=== PATIENT | female | born 2000 | race Caucasian/White ===

== ENCOUNTER 2021-04-13 13:50 | Inpatient (IN) ==
[~2021-04-13 13:50] MED LIST: FLUARIX QUADRIVALENT 0.5 ML SYR IM ONE; dexAMETHasone 10 MG in SYRINGE 0 ML IV SCH
[2021-04-13] MEDS ORDERED: dexAMETHasone**PF** 10 MG/ML VIAL IV ONE (16:25)
[2021-04-13] MEDS ORDERED: AMPICILLIN/SULBACTAM SOD 3,000 MG in 0.9 % SODIUM CHLORIDE 100 ML IV STA (16:25)
[2021-04-13] MEDS ORDERED: KETOROLAC TROMETHAMINE 15 MG/ML VIAL IV ONE ×2 (16:25→22:02)
[2021-04-13] MEDS ORDERED: SODIUM CHLORIDE 0.9% 1000ML 1,000 ML IV ONE (16:25)
--- NOTE | 2021-04-13 16:41 | Emergency Department Note ---
History of Present Illness General Chief complaint: Cough Stated complaint: COUGH,FEVER,SOB,HEADACHE,CONGESTION,SORETHROAT Time Seen by Provider: 04/13/21 16:09 History of Present Illness Maximum Pain Intensity: 7 20-year-old female who presents to the emergency department for evaluation of severe sore throat, inability to swallow or breathe. The patient reports that her symptoms started on Monday, along with a headache, runny nose, congestion and mild nonproductive cough. She was seen yesterday at the [facility] [place] where they performed a strep culture, and told her that she had tonsillitis. She was empirically provided a prescription for Augmentin and prednisone, however the patient has not been able to go to the pharmacy today to pickle cutter her prescription. The patient has had chills, but has not checked her temperature. She has been unable to eat or drink for the past 3 days. She rates her discomfort a 7 out of 10. Home Medications Medication Instructions Recorded Confirmed Type amitriptyline 10 mg tablet 15 mg PO HS 04/13/21 04/13/21 History ascorbic acid (vitamin C) 500 mg 0 mg PO DAILY 04/13/21 04/13/21 History tablet (Vitamin C) cholecalciferol (vitamin D3) 25 0 mcg PO DAILY 04/13/21 04/13/21 History mcg (1,000 unit) capsule (Vitamin D3) copper 380 square mm intrauterine 380 mm2 INTRAUTERINE CONTINOUS 04/13/21 04/13/21 History device (ParaGard T 380A) vitamin B complex 1 tab PO DAILY 04/13/21 04/13/21 History Allergies Allergy/AdvReac Type Severity Reaction Status Date / Time diphenhydramine AdvReac Intermediate MAKES HAND Verified 04/13/21 16:42 [From Benadryl] CLAM UP Past Med/Surg History Medical History No significant past medical history Surgical History No significant past surgical history Social History (Updated 04/13/21 @ 16:39 by Ashwin Norman) Smoking Status: Never smoker Hx Alcohol Use: Yes Alcohol type: beer Hx Substance Use: No Preferred Language: Portuguese Parts Consultant Required: No Beliefs That Will Affect Care: None marital status: Single Current Living Situation: Other Current Living Situation Comment: college roomates current occupational status: student Feels Safe at Home: Yes Safety Concerns: Feels Safe At This Time Assistive Devices: None Review of Systems 10 system review was performed and was negative except for pertinent positives and negatives as indicated in history of present illness Physical Exam Vital Signs Vital Signs - 24 hr 04/13/21 13:59 04/13/21 17:16 04/13/21 18:42 Temperature 36.8 C Temperature Source Temporal Artery Scan Pulse Rate 126 H Pulse Rate [Finger] 105 H 113 H Pulse Rhythm [Finger] Regular Respiratory Rate 16 14 20 Respiratory Effort / Characteristics Non-Labored Respiratory Depth Normal Blood Pressure 118/81 Blood Pressure [Left Arm] 115/76 131/83 Blood Pressure Mean 93 Blood Pressure Mean [Left Arm] 89 99 Pulse Oximetry 94 98 97 Oxygen Delivery Method Room Air Room Air Room Air Sepsis Recent Fever Within 48 Hours No Sepsis New/Unexplained Change in Mental Status No Sepsis Action Taken by Nursing No Action Required CONSTITUTIONAL: Healthy and well nourished. Alert and oriented X 3. Patient does not appear toxic. HEENT: Normocephalic, atraumatic. Pupils equal, round and reactive. No facial edema noted. Examination of the ears does not show any TM bulging, air-fluid levels or purulent effusion. No rhinorrhea noted. Examination of oropharynx shows significant bilateral tonsillar hypertrophy with kissing tonsils. Uvula does appear to be deviated to the left secondary to right tonsillar hypertrophy. Exudates are noted. Patient does have a mild trismus, only able to separate the incisors approximately 1 inch. Strep PCR was collected. No other buccal or mucosal lesions. NECK: Full active range of motion without discomfort. LYMPHATICS: No cervical chain adenopathy. RESPIRATORY: Clear to auscultation bilaterally with no wheezing, crackles, rhonchi or stridor. CARDIOVASCULAR: Regular rate and rhythm with no murmurs, rubs or gallops. GASTROINTESTINAL: Bowel sounds present in all quadrants. MUSCULOSKELETAL: Full range of motion of all joints without discomfort. INTEGUMENTARY: No rash or other significant dermatologic conditions noted. HEMATOLOGIC: No ecchymosis or petechiae. PSYCHIATRIC: Positive affect. NEUROLOGIC: Cranial nerves II-XII grossly intact. No focal neurologic deficits noted. Course Course Patient history and physical exam were performed. Nurses notes were reviewed. Vital signs were reviewed, showing a tachycardia of 126 bpm. The patient is otherwise afebrile and not hypoxic. IV access was established, and labs were drawn. The patient was hydrated with a liter of normal saline, and administered IV Decadron, Toradol and Unasyn. Review of labs showed a white count of 16.17 with left shift and bandemia. PT and INR were normal. The patient is mildly hyponatremic. LFTs, alkaline phosphatase, C-reactive protein and sed rate are elevated. Waller screen was positive. Group A strep was negative. COVID-19 PCR test was negative. CT of the neck with IV contrast shows evidence for severe bilateral tonsillitis with significant airway narrowing. Radiologist also makes mention of phlegmonous changes in bilateral tonsils, with a 1.8 cm developing peritonsillar abscess on the right. Upon reevaluation, the patient did report mild improvement of symptoms. The case was further discussed with Dr. Ramon, ED attending physician, as well as Dr. Sarah, ENT on-call, who recommended hospitalist consultation and she will evaluate the patient in the morning. She has recommended administering Decadron 10 mg every 8 hours, and no need for n.p.o. status after midnight. The case was then discussed with Dr. Deras, [facility] hospitalist service. Please see the hospitalist service dictations for further treatment and final disposition. The patient refused any further analgesics prior to transfer of care. Administered Medications Sodium Chloride (Nss 1000ml) 1,000 mls @ 125 mls/hr IV .Q8H ADELAIDA Stop: 04/14/21 12:14 Last Admin: 04/13/21 22:57 Dose: 125 mls/hr Documented by: [id number] Discontinued Medications Dexamethasone (Dexamethasone Sod Inj 4 Mg/Ml Vial) 10 mg IV Q8H ADELAIDA Stop: 05/13/21 19:44 Last Admin: 04/13/21 21:18 Dose: Not Given Documented by: [id number] Dexamethasone Sodium Phosphate (DexamethasonePf 10 Mg/Ml Vial) 10 mg IV NOW ONE Stop: 04/13/21 16:26 Last Admin: 04/13/21 16:55 Dose: 10 mg Documented by: [id number] Sodium Chloride (Nss 1000ml) 1,000 mls @ 999 mls/hr IV .Q1H1M ONE Stop: 04/13/21 17:25 Last Infusion: 04/13/21 17:52 Dose: 0 mls/hr Documented by: [id number] Admin: 04/13/21 16:51 Dose: 999 mls/hr Documented by: [id number] Ampicillin Sodium/Sulbactam Sodium 3,000 mg/ Sodium Chloride 108 mls @ 200 mls/hr IV NOW STA; Protocol Stop: 04/13/21 16:57 Last Infusion: 04/13/21 18:30 Dose: 0 mls/hr Documented by: [id number] Admin: 04/13/21 17:57 Dose: 200 mls/hr Documented by: [id number] Ampicillin Sodium/Sulbactam Sodium 3,000 mg/ Sodium Chloride 108 mls @ 200 mls/hr IV Q6H [facility]; Protocol Stop: 04/20/21 19:44 Last Admin: 04/13/21 21:14 Dose: Not Given Documented by: [id number] Ioversol (Optiray 320 100ml) 96 ml IV ONCE ONE Stop: 04/13/21 17:42 Last Admin: 04/13/21 17:42 Dose: 96 ml Documented by: [id number] Ketorolac Tromethamine (Ketorolac Tromethamine 15 Mg/Ml Vial) 10 mg IV NOW ONE Stop: 04/13/21 16:26 Last Admin: 04/13/21 16:55 Dose: 10 mg Documented by: [id number] Medical Decision Making Medical Records Attestation: I reviewed the patient's medical records. Home Medications Current Medication List: was personally reviewed by me Laboratory Data Attestation: I reviewed the patient's lab results. Result diagrams: 04/13/21 16:45 04/13/21 16:45 Lab Results 04/13/21 04/13/21 04/13/21 Range/Units 16:25 16:45 16:45 WBC 16.17 H (4.8-10.8) K/uL RBC 3.86 L (4.7-6.1) M/uL Hgb 11.4 L (14.0-18.0) g/dL Hct 33.1 L (42-52) % MCV 85.8 (80-100) fL MCH 29.5 (25-34) pg MCHC 34.4 (32-36) g/dL RDW Std Deviation 41.2 (36.4-46.3) fL RDW Coeff of Uzair 13.2 (11.5-14.5) % Plt Count 196 (130-400) K/uL MPV 9.6 (7.4-10.4) fL Neutrophils % (Manual) 64.9 % Lymphocytes % (Manual) 7.0 % Reactive Lymphs % (Man) 22.8 % Monocytes % (Manual) 5.3 % Neutrophils # (Manual) 10.49 H (1.4-6.5) K/uL Total Absolute Neuts 10.49 H (1.4-6.5) K/uL Lymphocytes # (Manual) 1.13 L (1.2-3.4) K/uL Reactive Lymphs # 3.69 K/uL Total Abs Lymphocytes 4.82 H (1.2-3.4) K/uL Monocytes # (Manual) 0.86 H (0.11-0.59) K/uL ESR 50 H (0-15) mm/hr Sodium (136-145) mmol/L Potassium (3.5-5.1) mmol/L Chloride (98-107) mmol/L Carbon Dioxide (21-32) mmol/L Anion Gap (3-11) BUN (7-18) mg/dl Creatinine (0.6-1.4) mg/dl Est Cr Clr Drug Dosing ml/min Est GFR ( Amer) ml/min Est GFR (Non-Af Amer) ml/min BUN/Creatinine Ratio (10-20) Glucose (70-99) mg/dl Calcium (8.5-10.1) mg/dl Total Bilirubin (0.2-1) mg/dl AST (15-37) U/L ALT (12-78) U/L Alkaline Phosphatase (45-117) U/L C-Reactive Protein (0-0.29) mg/dl Total Protein (6.4-8.2) gm/dl Albumin (3.4-5.0) gm/dl Globulin (2.5-4.0) gm/dl Albumin/Globulin Ratio (0.9-2) COVID-19 Eval Order SARS-CoV-2 (PCR) (Negative) Monoscreen (Negative) Group A Strep (PCR) NOT DETECTED (NotDetected) 04/13/21 04/13/21 04/13/21 Range/Units 16:45 16:45 19:00 WBC (4.8-10.8) K/uL RBC (4.7-6.1) M/uL Hgb (14.0-18.0) g/dL Hct (42-52) % MCV (80-100) fL MCH (25-34) pg MCHC (32-36) g/dL RDW Std Deviation (36.4-46.3) fL RDW Coeff of Uzair (11.5-14.5) % Plt Count (130-400) K/uL MPV (7.4-10.4) fL Neutrophils % (Manual) % Lymphocytes % (Manual) % Reactive Lymphs % (Man) % Monocytes % (Manual) % Neutrophils # (Manual) (1.4-6.5) K/uL Total Absolute Neuts (1.4-6.5) K/uL Lymphocytes # (Manual) (1.2-3.4) K/uL Reactive Lymphs # K/uL Total Abs Lymphocytes (1.2-3.4) K/uL Monocytes # (Manual) (0.11-0.59) K/uL ESR (0-15) mm/hr Sodium 134 L (136-145) mmol/L Potassium 3.5 (3.5-5.1) mmol/L Chloride 102 (98-107) mmol/L Carbon Dioxide 24 (21-32) mmol/L Anion Gap 8.0 (3-11) BUN 11 (7-18) mg/dl Creatinine 0.68 (0.6-1.4) mg/dl Est Cr Clr Drug Dosing 164.4 ml/min Est GFR ( Amer) > 150.0 ml/min Est GFR (Non-Af Amer) 138.5 ml/min BUN/Creatinine Ratio 16.5 (10-20) Glucose 95 (70-99) mg/dl Calcium 9.3 (8.5-10.1) mg/dl Total Bilirubin 0.8 (0.2-1) mg/dl AST 124 H (15-37) U/L ALT 280 H (12-78) U/L Alkaline Phosphatase 189 H (45-117) U/L C-Reactive Protein 10.40 H (0-0.29) mg/dl Total Protein 8.2 (6.4-8.2) gm/dl Albumin 3.8 (3.4-5.0) gm/dl Globulin 4.4 H (2.5-4.0) gm/dl Albumin/Globulin Ratio 0.9 (0.9-2) COVID-19 Eval Order Covid19 at [facility] SARS-CoV-2 (PCR) (Negative) Monoscreen Positive A (Negative) Group A Strep (PCR) (NotDetected) 04/13/21 Range/Units 19:00 WBC (4.8-10.8) K/uL RBC (4.7-6.1) M/uL Hgb (14.0-18.0) g/dL Hct (42-52) % MCV (80-100) fL MCH (25-34) pg MCHC (32-36) g/dL RDW Std Deviation (36.4-46.3) fL RDW Coeff of Uzair (11.5-14.5) % Plt Count (130-400) K/uL MPV (7.4-10.4) fL Neutrophils % (Manual) % Lymphocytes % (Manual) % Reactive Lymphs % (Man) % Monocytes % (Manual) % Neutrophils # (Manual) (1.4-6.5) K/uL Total Absolute Neuts (1.4-6.5) K/uL Lymphocytes # (Manual) (1.2-3.4) K/uL Reactive Lymphs # K/uL Total Abs Lymphocytes (1.2-3.4) K/uL Monocytes # (Manual) (0.11-0.59) K/uL ESR (0-15) mm/hr Sodium (136-145) mmol/L Potassium (3.5-5.1) mmol/L Chloride (98-107) mmol/L Carbon Dioxide (21-32) mmol/L Anion Gap (3-11) BUN (7-18) mg/dl Creatinine (0.6-1.4) mg/dl Est Cr Clr Drug Dosing ml/min Est GFR ( Amer) ml/min Est GFR (Non-Af Amer) ml/min BUN/Creatinine Ratio (10-20) Glucose (70-99) mg/dl Calcium (8.5-10.1) mg/dl Total Bilirubin (0.2-1) mg/dl AST (15-37) U/L ALT (12-78) U/L Alkaline Phosphatase (45-117) U/L C-Reactive Protein (0-0.29) mg/dl Total Protein (6.4-8.2) gm/dl Albumin (3.4-5.0) gm/dl Globulin (2.5-4.0) gm/dl Albumin/Globulin Ratio (0.9-2) COVID-19 Eval Order SARS-CoV-2 (PCR) NEGATIVE (Negative) Monoscreen (Negative) Group A Strep (PCR) (NotDetected) Imaging Data Attestation: I personally reviewed and interpreted this imaging study as follows: My Impression: CT with IV contrast of the neck shows severe bilateral tonsillitis with adjacent airway narrowing. A 1.8 cm right peritonsillar abscess is also noted. Radiologist report was also reviewed. Radiologist's Impression: Soft Tissue Neck CT 04/13/21 16:35 CT SCAN OF THE NECK WITH IV CONTRAST CLINICAL HISTORY: Sore throat. Clinical concern for tonsillar abscess. COMPARISON STUDY: No priors. TECHNIQUE: Following the IV administration of 96 cc of Optiray 320, CT scan of the soft tissues of the neck was performed from the skull base to the upper chest. Images are reviewed in the axial, sagittal, and coronal planes. IV contrast was administered without complication. A dose lowering technique was utilized adhering to the principles of ALARA. CT DOSE: 508.14 mGy.cm FINDINGS: Pharynx: The tonsils are enlarged and heterogeneous with phlegmonous change seen bilaterally. This significantly narrows the adjacent airway. A 1.8 x 1.4 cm developing peritonsillar abscess is seen on the right on image #146. There is associated mucosal hyperemia throughout the pharynx. The pharyngeal airway is widely patent. There is no evidence of mass lesion. The vocal cords are sym metric. The parapharyngeal fat is well maintained. The prevertebral/retropharyngeal soft tissues are within normal limits. The epiglottis is normal. Lymphadenopathy: There is bilateral cervical lymphadenopathy. The largest node is on the right measuring 3.0 x 2.0 cm Thyroid: Normal in size and attenuation. Salivary glands: There are prominent intraparotid lymph nodes. The parotid and submandibular glands are otherwise within normal limits. Brain parenchyma: The visualized brain parenchyma at the skull base is normal in appearance. Vascular structures: The carotid arteries and jugular veins are patent bilaterally. Skeletal structures: Imaged portions of the calvarium at the skull base are within normal limits. The cervical spine appears intact. Sinuses and mastoids: The paranasal sinuses are clear. The mastoid air cells are well pneumatized. Orbits: The bony orbits are intact. Orbital contents are normal as visualized. Lung apices: Visualized apical lung parenchyma is clear. IMPRESSION: 1. Findings are consistent with a severe pharyngitis/tonsillitis. 2. Tonsillar enlargement significantly narrows the adjacent airway. 3. Phlegmonous change is present in the tonsils bilaterally, with a 1.8 cm developing peritonsillar abscess on the right. 4. Bilateral cervical lymphadenopathy is likely reactive. Clinical follow-up to resolution is recommended. ACT 112: Negative or not required by law. Electronically signed by: Sami Sabillon M.D. 04/13/2021 6:22 PM Blood Pressure Blood Pressure Findings: Normal blood pressure MDM Narrative Patient presents the emergency department with complaint of severe sore throat, inability to swallow and breathe. She has not been able to eat or drink over the past 3 days. Physical exam shows a severe tonsillitis with right asymmetric tonsillar hypertrophy and uvular deviation. She also has a mild trismus on exam. CT exam did show evidence for severe tonsillitis with compression of the adjacent airway. A right peritonsillar abscess is also noted. The patient will be admitted for IV antibiotics and steroids, and will undergo further ENT evaluation. It is noted that the patient is also positive for mononucleosis. Group A strep PCR was negative. Impression & Plan Tonsillopharyngitis, Mononucleosis, Peritonsillar abscess Discharge Plan Visit Data Chief Complaint: Cough Stated Complaint: COUGH,FEVER,SOB,HEADACHE,CONGESTION,SORETHROAT ED Provider: Gideon Gold ED Midlevel Provider: Ashwin Norman Discharge Problem: Tonsillopharyngitis, Mononucleosis, Peritonsillar abscess Patient Disposition: Admitted As Inpatient Discharge Instructions Interventions: ED Discharge Assessment Last Done: 04/13/21 22:25 Discharge Problem: Mononucleosis Qualifiers: Infectious mononucleosis etiology: unspecified organism Infectious mononucleosis complication: other complications Qualified Code(s): B27.99 - Infectious mononucleosis, unspecified with other complication
[2021-04-13 16:59] LABS: Mean Corpuscular Hemoglobin 29.5 pg (25-34); Mean Corpuscular Hgb Conc 34.4 g/dL (32-36); Mean Corpuscular Volume 85.8 fL (80-100); Mean Platelet Volume 9.6 fL (7.4-10.4); Platelet Count 196 K/uL (130-400); RDW Coefficient of Variation 13.2 % (11.5-14.5); RDW Standard Deviation 41.2 fL (36.4-46.3); White Blood Count 16.17 K/uL (4.8-10.8)
[2021-04-13 17:23] LABS: Albumin Level 3.8 gm/dl (3.4-5.0); BUN Creatinine Ratio 16.5 (10-20); Calcium 9.3 mg/dl (8.5-10.1); Potassium 3.5 mmol/L (3.5-5.1)
[2021-04-13 17:26] LABS: Albumin Globulin Ratio 0.9 (0.9-2); Bilirubin,Total 0.8 mg/dl (0.2-1); C Reactive Protein 10.4 mg/dl (0-0.29); Globulin 4.4 gm/dl (2.5-4.0); Total Protein 8.2 gm/dl (6.4-8.2)
[2021-04-13 17:35] LABS: ALC (manual) 4.82 K/uL (1.2-3.4); ANC (manual) 10.49 K/uL (1.4-6.5); Lymphocytes # (manual) 1.13 K/uL (1.2-3.4); Monocytes # (manual) 0.86 K/uL (0.11-0.59); Monocytes % (manual) 5.3 %; Neutrophils # (manual) 10.49 K/uL (1.4-6.5); Neutrophils % (manual) 64.9 %; Reactive Lymphocytes # (manual) 3.69 K/uL; Reactive Lymphocytes % (manual) 22.8 %
[2021-04-13] MEDS ORDERED: OPTIRAY 320 100ml IV ONE (17:41)
--- NOTE | 2021-04-13 18:23 | CT Scan Report ---
CT SCAN OF THE NECK WITH IV CONTRAST CLINICAL HISTORY: Sore throat. Clinical concern for tonsillar abscess. COMPARISON STUDY: No priors. TECHNIQUE: Following the IV administration of 96 cc of Optiray 320, CT scan of the soft tissues of th e neck was performed from the skull base to the upper chest. Images are reviewed in the axial, sagitt al, and coronal planes. IV contrast was administered without complication. A dose lowering techniqu e was utilized adhering to the principles of ALARA. CT DOSE: 508.14 mGy.cm FINDINGS: Pharynx: The tonsils are enlarged and heterogeneous with phlegmonous change seen bilaterally. This si gnificantly narrows the adjacent airway. A 1.8 x 1.4 cm developing peritonsillar abscess is seen on t he right on image #146. There is associated mucosal hyperemia throughout the pharynx. The pharyngeal airway is widely patent. There is no evidence of mass lesion. The vocal cords are symmetric. The para pharyngeal fat is well maintained. The prevertebral/retropharyngeal soft tissues are within normal li mits. The epiglottis is normal. Lymphadenopathy: There is bilateral cervical lymphadenopathy. The largest node is on the right measur ing 3.0 x 2.0 cm Thyroid: Normal in size and attenuation. Salivary glands: There are prominent intraparotid lymph nodes. The parotid and submandibular glands a re otherwise within normal limits. Brain parenchyma: The visualized brain parenchyma at the skull base is normal in appearance. Vascular structures: The carotid arteries and jugular veins are patent bilaterally. Skeletal structures: Imaged portions of the calvarium at the skull base are within normal limits. The cervical spine appears intact. Sinuses and mastoids: The paranasal sinuses are clear. The mastoid air cells are well pneumatized. Orbits: The bony orbits are intact. Orbital contents are normal as visualized. Lung apices: Visualized apical lung parenchyma is clear. IMPRESSION: 1. Findings are consistent with a severe pharyngitis/tonsillitis. 2. Tonsillar enlargement significantly narrows the adjacent airway. 3. Phlegmonous change is present in the tonsils bilaterally, with a 1.8 cm developing peritonsillar a bscess on the right. 4. Bilateral cervical lymphadenopathy is likely reactive. Clinical follow-up to resolution is recomme nded. ACT 112: Negative or not required by law. Electronically signed by: Sami Sabillon M.D. 04/13/2021 6:22 PM
--- NOTE | 2021-04-13 19:20 | History & Physical Report ---
Date of Service April 13, 2021 Assessment & Plan (1) Tonsillopharyngitis: Plan: Cally is a 20-year-old female with a notable history of migraines who presented to [facility] for evaluation of sore throat and inability to swallow, subsequently found to have bilateral tonsillopharyngitis and right- sided peritonsillar abscess on imaging, likely secondary to infectious mononucleosis. Severe Pharyngotonsillitis with Peritonsillar Abscess Insetting of several days of sore throat progressively worsening pain with swallowing Monospot positive - suspect pharyngotonsillitis is largely secondary to infectious mononucleosis. Bacterial superinfection cannot be ruled out. Rapid strep negative. Throat culture pending. Notable leukocytosis with left shift, elevated ESR/CRP CT of the neck demonstrating severe pharyngeal tonsillitis with adjacent airway narrowing, phlegmonous change and 1.8 cm peritonsillar abscess on right side ENT consulted in the ED: Appreciate recommendations on need for procedural intervention/length of steroids Begin dexamethasone 10 mg IV every 8 hours Initiate Unasyn 3 g every 6 hours pending return of throat culture Monitor on telemetry. Patient certainly high risk for developing airway obstruction. Thankfully, exam demonstrating normal air movement at this time. --> If acute deterioration, notify ENT, consider ICU consult for emergency airway N.p.o. for now; reevaluate in a.m. Transaminitis -- admission AST 124 / ALT 280 At this time, largely suspect secondary to infectious mononucleosis Lower suspicion for stone related etiology in setting of the above. No elevation in bilirubin. Abdominal exam benign Synthetic function: Check INR. Albumin normal. Platelets normal. Continue to trend. If worsening, consider right upper quadrant ultrasound versus CT of the abdomen pelvis alongside additional serologies (hepatitis panel, CMV, etc.) Avoid hepatotoxic medications LR @ 125cc/hr Migraine headaches Stable, no acute needs. Continue amitriptyline Code: Full code Dispo: MedSurg with telemetry Diet: N.p.o. until a.m., reevaluate at that time; lactated Ringer's ongoing Prophylaxis: SCDs (2) Infectious mononucleosis: (3) Peritonsillar abscess: (4) Transaminitis: History of Present Illness Primary Care Provider: NO PCP Cally is a 20-year-old female with a notable history of migraines who presented to [facility] for evaluation of sore throat and inability to swallow. Patient says that the symptoms began on Monday and gotten progressively worse. Over this time, she does feel that she has been febrile with intermittent chills. She also says that she has been experiencing some m ild upper respiratory symptoms. She was seen at urgent care yesterday, where throat culture was obtained, however no results are back at this time. She was empirically prescribed Augmentin and prednisone. She has not taken these yet. Unfortunately, her symptoms worsened overnight and into today. She has been unable to swallow. She does endorse retropharyngeal fullness, but without difficulty breathing. She denies any abdominal pain. Endorses mild intermittent nausea with occasional vomiting. Patient does say that she has had direct salivary contact with 3 partners over the last several months, however denies being sexually active. She denies any current or previous use of intravenous drugs. She says that she does consume alcohol, last use was approximately 4 days ago. At the time, she said she had about 4 drinks. She says that she usually only drinks on weekend. She does endorse using about 1 g of Tylenol per day over these last several days while she has felt ill. In the ED, patient was found to be tachycardic and afebrile. She was found to have significant bilateral pharyngeal tonsillitis. She was noted to have an appreciable leukocytosis to 16 with neutrophilic predominance. Platelets normal. ESR and CRP elevated to 50 and 10.4, respectively. Sodium mildly low at 134, mild transaminitis (ALT 280, AST 124), normal albumin and bilirubin. Her Monospot returned positive. CT of neck did demonstrate severe pharyngotonsillitis with adjacent airway narrowing, phlegmonous change, 1.8 cm peritonsillar abscess on right, and reactive bilateral cervical adenopathy. ENT was consulted in the ED, where case was reviewed. Recommended dexamethasone 10 mg every 8. No acute indication for surgery at this time. Allergies Allergy/AdvReac Type Severity Reaction Status Date / Time diphenhydramine AdvReac Intermediate MAKES HAND Verified 04/13/21 16:42 [From Benadryl] CLAM UP Home Medications Medication Instructions Recorded Confirmed Type amitriptyline 10 mg tablet 15 mg PO HS 04/13/21 04/13/21 History ascorbic acid (vitamin C) 500 mg 0 mg PO DAILY 04/13/21 04/13/21 History tablet (Vitamin C) cholecalciferol (vitamin D3) 25 0 mcg PO DAILY 04/13/21 04/13/21 History mcg (1,000 unit) capsule (Vitamin D3) copper 380 square mm intrauterine 380 mm2 INTRAUTERINE CONTINOUS 04/13/21 04/13/21 History device (ParaGard T 380A) vitamin B complex 1 tab PO DAILY 04/13/21 04/13/21 History clindamycin HCl 300 mg capsule 600 mg PO Q8H 10 Days #60 cap 04/14/21 Rx methylprednisolone 4 mg tablets in See Rx Instructions .ROUTE 04/14/21 Rx a dose pack (Medrol (Pasquale)) .COMPLEX #21 ea Past Med/Surg History Medical History No significant past medical history Surgical History No significant past surgical history Social History Smoking Status: Never smoker Hx Alcohol Use: Yes Alcohol type: beer Hx Substance Use: No Preferred Language: [place] [employer]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 Denies current nausea or vomiting. Denies diarrhea. Denies urinary symptoms. Endorses throat pain. Denies facial pain. Physical Exam Physical Exam: General: Tired appearing 20-year-old female who is lying back in her hospital bed, relaxed, upon my arrival. Her voice does sound muffled. She is in no acute distress. HEENT: NCAT. Eyes - Sclera are white, anicteric, and without injection. Mouth - MMM with severe tonsillopharyngitis, touching of the back to mouth. Exudates noted on tonsils. Nose - nasal turbinates are uninflamed and without discharge. Ears - External ears appears healthy b/l with no erythema or rashes; TMs displayed white reflex b/l and are non-bulging, uninflamed, and reveal no signs of fluid accumulation. Neckappreciable soft, nontender mass noted immediately inferior to the angle of the right jaw. Fullness is appreciated within the same area on the left, but smaller. Right-sided anterior cervical lymphadenopathy appreciated. Cardiac: Tachycardic with regular rhythm; S1 and S2 present with no murmurs, rubs, or gallops. Pulmonary: Good respiratory effort with symmetric expansion of the chest. No stridor. Voice muffling noted. No use of accessory muscles. Lungs were clear to auscultation bilaterally with no crackles or wheezes. Abdominal: Abdomen was soft, nondistended, and non-tender to palpation. Mild hepatomegaly appreciated. Extremities: Upper and lower extremities are warm and well perfused. Capillary refill assessed in UE was < 3 sec. Results & Data Results & Data ([facility]) Vital Signs (Past 12 Hours) Vital Signs Temp Pulse Pulse Resp BP BP Pulse Ox 04/13/21 18:42 113 H 20 131/83 97 04/13/21 17:16 105 H 14 115/76 98 04/13/21 13:59 36.8 C 126 H 16 118/81 94 Supervising Physician Co-Signing Physician Notes Patient seen and examined, chart reviewed, case discussed with Dr. Singer and I agree with the assessment and plan as documented above. In brief, Cally is a 20yo female with history of migraine presenting with peritonsillar abscess and mononucleosis infection. On exam she is afebrile, HD stable. +hot potato voice +tenderness with right neck palpation +hot potato voice +edematous tonsils Labs and images reviewed Assessment/Plan - 20yo female with mononucleosis, peritonsillar abscess with some airway involvement. Patient with muffled voice. No stridor Admit to medical Continue Dexamethasone 10mg IV q 8 Unasyn Closely monitor airway ENT consultation appreciated Repeat LFTs in AM REmainder of plan as above Resident Activity Tracking Resident Involvement: Resident Care Provided Care Provided: Adult [facility]
[2021-04-13] MEDS ORDERED: ONDANSETRON INJ 2 MG/ML 2 ML VIAL IV PRN (19:36)
[2021-04-13] MEDS ORDERED: AMPICILLIN/SULBACTAM SOD 3,000 MG in 0.9 % SODIUM CHLORIDE 100 ML IV SCH (19:45)
[2021-04-13] MEDS ORDERED: DEXAMETHASONE SOD INJ 4 MG/ML VIAL IV SCH (19:45)
[2021-04-13 20:36] LABS: INR 1.1 (0.9-1.1); Prothrombin Time 11.4 Seconds (9.0-12.0)
[2021-04-13] MEDS ORDERED: COPPER IU SCH (22:49)
[2021-04-13] MEDS: SODIUM CHLORIDE 0.9% 1000ML 1,000 ML IV SCH (22:57)
[2021-04-13] MEDS: AMITRIPTYLINE HCL 10 MG TAB PO SCH (23:50)
[2021-04-14] MEDS ORDERED: DEXAMETHASONE SOD INJ 4 MG/ML VIAL IV SCH
[2021-04-14] MEDS: dexAMETHasone 10 MG in SYRINGE 0 ML IV SCH ×3 (00:03→15:54)
[2021-04-14] MEDS: AMPICILLIN/SULBACTAM SOD 3,000 MG in 0.9 % SODIUM CHLORIDE 100 ML IV SCH ×2 (00:03→05:55)
[2021-04-14] MEDS: MELATONIN 3 MG TAB PO PRN (00:10)
[2021-04-14 06:59] LABS: Hematocrit (blood only) 30.9 % (37-47); Hemoglobin 10.3 g/dL (12.0-16.0); Mean Corpuscular Hemoglobin 28.9 pg (25-34); Mean Corpuscular Hgb Conc 33.3 g/dL (32-36); Mean Corpuscular Volume 86.8 fL (80-100); Mean Platelet Volume 9.8 fL (7.4-10.4); Platelet Count 215 K/uL (130-400); RDW Coefficient of Variation 12.9 % (11.5-14.5); RDW Standard Deviation 41.3 fL (36.4-46.3); Red Blood Count 3.56 M/uL (4.2-5.4); White Blood Count 14.16 K/uL (4.8-10.8)
[2021-04-14 07:03] LABS: INR 1.1 (0.9-1.1); Prothrombin Time 11.4 Seconds (9.0-12.0)
[2021-04-14] MEDS: SODIUM CHLORIDE 0.9% 1000ML 1,000 ML IV SCH (07:27)
[2021-04-14 07:32] LABS: Alanine Aminotransferase 194 U/L (12-78); Albumin Level 2.9 gm/dl (3.4-5.0); Aspartate Aminotransferase 71 U/L (15-37); BUN Creatinine Ratio 22.1 (10-20); Bilirubin,Total 0.5 mg/dl (0.2-1); Blood Urea Nitrogen 12 mg/dl (7-18); Calcium 8.7 mg/dl (8.5-10.1); Carbon Dioxide 19 mmol/L (21-32); Chloride 107 mmol/L (98-107); Creatinine Clr Calc Pharmacy 175.5 ml/min; Est GFR (African American) > 150.0 ml/min; Est GFR (Non-African American) 138.5 ml/min; Glucose 117 mg/dl (70-99); Sodium 136 mmol/L (136-145)
[2021-04-14 07:33] LABS: Albumin Globulin Ratio 0.7 (0.9-2); Alkaline Phosphatase 155 U/L (45-117); Globulin 4.2 gm/dl (2.5-4.0); Total Protein 7.1 gm/dl (6.4-8.2)
[2021-04-14 07:42] LABS: Basophils # (auto) 0.09 K/uL (0-0.2); Basophils % (auto) 0.6 %; Immature Granulocytes # (auto) 0.04 K/uL (0.00-0.02); Immature Granulocytes % (auto) 0.3 %; Lymphocytes # (auto) 5.11 K/uL (1.2-3.4); Lymphocytes % (auto) 36.1 %; Monocytes % (auto) 3.5 %; Neutrophils # (auto) 8.42 K/uL (1.4-6.5); Neutrophils % (auto) 59.5 %; Polychromasia 1+
--- NOTE | 2021-04-14 08:07 | ENT Consultation ---
Date of Consultation April 14, 2021 Assessment & Plan (1) Mononucleosis: (2) Peritonsillar abscess: 20yF with mono and 1.7cm R peritonsillar phlegmon, improving on abx/steroids. I+D at bedside with return of scant purulence. -Continue IV abx and decadron 10mg Q8H -OK for regular diet -Recommend monitoring until PM, if ongoing improvement OK for d/c home from ENT standpoint. 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 Patient reports progressive sore throat since 04/12. No prior antibiotics. Associated odynophagia and trismus. Seen in the ED and +mono. CT neck per my read showed a 1.7cm hypodensity without rim enhancement consistent with a peritonsillar phlegmon. Treated with decadron and unasyn with some improvement. No airway concerns. No prior PTAs. Otherwise healthy PMH: none PSH: wisdom teeth Meds: see below All: see below FH: noncontributory SH: [employer] student, never smoker ROS: negative except as noted above Allergies Allergy/AdvReac Type Severity Reaction Status Date / Time diphenhydramine AdvReac Intermediate MAKES HAND Verified 04/13/21 16:42 [From Benadryl] CLAM UP Home Medications Medication Instructions Recorded Confirmed Type amitriptyline 10 mg tablet 15 mg PO HS 04/13/21 04/13/21 History ascorbic acid (vitamin C) 500 mg 0 mg PO DAILY 04/13/21 04/13/21 History tablet (Vitamin C) cholecalciferol (vitamin D3) 25 0 mcg PO DAILY 04/13/21 04/13/21 History mcg (1,000 unit) capsule (Vitamin D3) copper 380 square mm intrauterine 380 mm2 INTRAUTERINE CONTINOUS 04/13/21 04/13/21 History device (ParaGard T 380A) vitamin B complex 1 tab PO DAILY 04/13/21 04/13/21 History Patient History Medical History No significant past medical history Surgical History No significant past surgical history Social History Smoking Status: Never smoker Hx Alcohol Use: Yes Alcohol type: beer Hx Substance Use: No Preferred Language: [place] 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 Head and Face: Skull: No obvious deformities Sinus tenderness: There is no tenderness to palpation of the sinuses. Salivary glands: The parotid and submandibular glands are normal in appearance and there are no masses on palpation. Facial strength: Facial motion is symmetric and without weakness. Eyes: Eyelids: There is no periorbital edema. Conjunctiva: There is no conjunctival erythema. Pupils: The pupils are equal, round, and reactive to light. Extraocular muscles: Extraocular movement is normal. Nystagmus: There is no nystagmus. Ears: Right auricle: The pinna is normally formed without skin lesion or mass. Left auricle: The pinna is normally formed without skin lesion or mass. Hearing: Clinical speech shingle bolt cutter threshold testing is grossly normal. Nose: External: There is no gross external deformity, tenderness, or skin lesion or mass. Oral cavity/Oropharynx: Lips: There are no lip lesions or masses. Oral cavity: There is no inflammation, lesion, or mass involving the gums, gingiva, floor of mouth, buccal mucosa, retromolar trigone, hard palate, soft palate, tongue. Dentition is intact. Mild trismus, able to open ~4cm Oropharynx: 3+ tonsils bilaterally with hyperemia, mild exudate. Very mild fullness of R soft palate, no uvular deviation Neck: General: There are no visible scars or lesions involving the neck. There are no visible or palpable masses involving the neck. The trachea is midline. Lymph nodes: +bilateral palpable cervical adenopathy Thyroid: There is no visible or palpable thyroid enlargement or nodularity. Respiratory/Pulmonary: There is no stertor or stridor. There is normal respiratory effort without acute distress. Cardiovascular: There is no visible extremity edema. Skin: There are no visible lesions or masses involving the skin of the head and neck region. Neurological: Cranial nerves: Cranial nerve II is noted to be intact by grossly normal visual acuity. Cranial nerves III, IV, and are noted to be intact by normal extraocular movements. Cranial nerve VII is noted to be intact by symmetric and normal facial movement. Cranial nerve VIII is noted to be intact by a relatively normal clinical speech shingle bolt cutter threshold. Cranial nerve IX is noted to be intact by an intact gag reflex and normal palatal movement. Cranial nerve X is noted to be intact by a normal voice. Cranial nerve XI is noted to be intact by normal shoulder and head movement. Cranial nerve XII is noted to be intact by normal symmetric tongue movement. Vestibular system: There is no spontaneous or gaze evoked nystagmus. Psychiatric: Mental status: The patient is awake and alert. Mood/affect: The patient has a normal mood and affect. Mild hot potato voice Procedure: Incision and drainage of right peritonsillar abscess Indications: R peritonsillar abscess Details: Verbal informed consent was obtained. The oropharynx was visualized directly. 1cc 1% lidocaine with [id number] epinephrine was instilled into the R superolateral peritonsillar tissue. After adequate local anesthesia was achieved, an 18 gauge needle was used to decompress the R peritonsillar abscess with return of scant purulent material. There was not sufficient material to send for culture. Adequate hemostasis was noted. The patient tolerated the procedure well and there were no complications. Results & Data ([facility]) Vital Signs (Past 12 Hours) Vital Signs Temp Pulse Pulse Resp BP Pulse Ox 04/14/21 07:52 89 04/14/21 07:00 36.3 C L 91 H 16 123/81 96 04/14/21 03:58 37 C 98 H 16 116/72 96 04/14/21 00:15 106 H 04/13/21 22:58 36.8 C 114 H 18 125/80 94 04/13/21 21:41 102 H 18 123/75 97 PG Care Time/CCT Total # of Minutes Spent Total Time Spent with Patient: Total time spent is greater than 50% in coordination of care (as documented) at patient's floor/unit and/or counseling patient: Coding Level of Care Code 68844 Inpt Consult Level 4 (25 - SIGNIFICANT, SEPARATELY IDENTIFIABLE ) Diagnoses Mononucleosis B27.99 Infectious mononucleosis complication: other complications Infectious mononucleosis etiology: unspecified organism Peritonsillar abscess J36 CPT Codes Drainage of Tonsil Abscess - 01492 ([id number]) (1) Mononucleosis Infectious mononucleosis complication: other complications Infectious mononucleosis etiology: unspecified organism Qualified Code(s): B27.99 - Infec tious mononucleosis, unspecified with other complication
--- NOTE | 2021-04-14 09:41 | Discharge Summary ---
Date of Service April 14, 2021 Admission HPI Per Admitting Provider Cally is a 20-year-old female with a notable history of migraines who presented to [facility] for evaluation of sore throat and inability to swallow. Patient says that the symptoms began on Monday and gotten progressively worse. Over this time, she does feel that she has been febrile with intermittent chills. She also says that she has been experiencing some mild upper respiratory symptoms. She was seen at urgent care yesterday, where throat culture was obtained, however no results are back at this time. She was empirically prescribed Augmentin and prednisone. She has not taken these yet. Unfortunately, her symptoms worsened overnight and into today. She has been unable to swallow. She does endorse retropharyngeal fullness, but without difficulty breathing. She denies any abdominal pain. Endorses mild intermittent nausea with occasional vomiting. Patient does say that she has had direct salivary contact with 3 partners over the last several months, however denies being sexually active. She denies any current or previous use of intravenous drugs. She says that she does consume alcohol, last use was approximately 4 days ago. At the time, she said she had about 4 drinks. She says that she usually only drinks on weekend. She does endorse using about 1 g of Tylenol per day over these last several days while she has felt ill. In the ED, patient was found to be tachycardic and afebrile. She was found to have significant bilateral pharyngeal tonsillitis. She was noted to have an appreciable leukocytosis to 16 with neutrophilic predominance. Platelets normal. ESR and CRP elevated to 50 and 10.4, respectively. Sodium mildly low at 134, mild transaminitis (ALT 280, AST 124), normal albumin and bilirubin. Her Monospot returned positive. CT of neck did demonstrate severe pharyngotonsillitis with adjacent airway narrowing, phlegmonous change, 1.8 cm peritonsillar abscess on right, and reactive bilateral cervical adenopathy. ENT was consulted in the ED, where case was reviewed. Recommended dexamethasone 10 mg every 8. No acute indication for surgery at this time. Admission Exam Per Admitting Provider General: Tired appearing 20-year-old female who is lying back in her hospital bed, relaxed, upon my arrival. Her voice does sound muffled. She is in no acute distress. HEENT: NCAT. Eyes - Sclera are white, anicteric, and without injection. Mouth - MMM with severe tonsillopharyngitis, touching of the back to mouth. Exudates noted on tonsils. Nose - nasal turbinates are uninflamed and without discharge. Ears - External ears appears healthy b/l with no erythema or rashes; TMs displayed white reflex b/l and are non-bulging, uninflamed, and reveal no signs of fluid accumulation. Neckappreciable soft, nontender mass noted immediately inferior to the angle of the right jaw. Fullness is appreciated within the same area on the left, but smaller. Right-sided anterior cervical lymphadenopathy appreciated. Cardiac: Tachycardic with regular rhythm; S1 and S2 present with no murmurs, rubs, or gallops. Pulmonary: Good respiratory effort with symmetric expansion of the chest. No stridor. Voice muffling noted. No use of accessory muscles. Lungs were clear to auscultation bilaterally with no crackles or wheezes. Abdominal: Abdomen was soft, nondistended, and non-tender to palpation. Mild hepatomegaly appreciated. Extremities: Upper and lower extremities are warm and well perfused. Capillary refill assessed in UE was < 3 sec. Principal Diagnosis Infectious mononucleosis, tonsillar abscess Discharge Exam General: tired-appearing female laying in bed, no acute distress, +vocal change HEENT: moist mucous membranes, bilateral cervical lymphadenopathy and bilateral submandibular fullness, white tonsillar exudates noted, pharyngeal erythema with inflamed uvula deviated slightly to right CV: RRR, normal S1 and S2, no murmurs Resp: CTAB, no wheezes, +muffled voice Abdominal: Soft, nontender, nondistended, no hepatosplenomegaly. Skin: warm and dry Discharge Data Allergies Allergy/AdvReac Type Severity Reaction Status Date / Time diphenhydramine AdvReac Intermediate MAKES HAND Verified 04/13/21 16:42 [From [place]] CLAM UP Consultations 04/13/21 19:36 Consult Otolaryngology (Head and Neck) Routine 04/13/21 19:59 ED Decision to Admit Stat Ordered Studies 04/13/21 16:35 CT soft tissue neck w con Stat Hospital Course (1) Tonsillopharyngitis: 20 yo F with PMH migraines admitted 04/13 for infectious mononucleosis with tonsillar abscess, discharged 04/14. Infectious mononucleosis with tonsillar abscess -Progressively worsening sore throat, pain with swallowing, reduced oral intake, preceded by URI symptoms -Monospot positive, elevated ESR, CRB, WBC, liver enzymes. CT neck- pharyngeal tonsillitis with airway narrowing, 1.8 cm abscess of R tonsil -Decadron, IVF, Unasyn in ED -Transaminitis likely due to mono, resolving during admission, last AST/ALT of 124/280 -Seen by ENT, 04/14 performed incision/drainage of R peritonsillar abscess. Recommended IV clindamycin after procedure -Clinically stable with some improvement of symptoms by day of discharge -Pt discharged home with 10 day course of oral clindamycin and medrol dose pack -Advised to avoid contact sports for 3 weeks, eat probiotic yogurt while she completes clindamycin -PCP to recheck liver enzymes after conclusion of treatment course, also f/u with ENT in 1 week (2) Infectious mononucleosis: (3) Peritonsillar abscess: (4) Transaminitis: Total Time Total Time Spent Total Time Spent (In Minutes): 20 Discharge Plan Discharge Items Patient Disposition: Home - Self-Care Reason For Visit: MONO, TONSILLOPHARYNGITIS Discharge Diagnosis: Infectious mononucleosis Activity: Per Instructions section Non-emergency contact: Primary Care Provider Call non-emergency contact if: you have any medication questions, your symptoms worsen, your pain is not controlled, your pain is worsening, your pain is unusual for you and you have a fever Follow-up/Referrals: Adria Sarah MD [Physician] - 04/21/21 8:00 am (In 1 week from today) PCP,NO [Primary Care Provider] - Diet: Regular Addtl Attending Provider Instructions: You were admitted to the hospital for infectious mononucleosis and tonsillar abscess. You were treated with IV fluids, antibiotics, steroids and a procedure to drain your tonsils of the abscess (infected fluid collection). You were diagnosed with mono. This is a viral infection you likely got from saliva of an infected person. We gave you the antibiotics mostly for the tonsillar infection, which was likely caused by some bacteria. The steroids were to reduce the inflammation from the virus and also to help relieve the swelling of your airway. The incision/drainage procedure was intended to clear much of the infection from your tonsils. You will be sent home with some oral antibiotics as well as oral steroids. Your condition improved, but the symptoms will not completely resolve for some time. Take the medications as prescribed and you will notice gradual improvement. Your airway should clear up and you should be able to eat/drink as usual as well as have your normal voice again soon. Please make sure to avoid any contact sports/heavy strenuous exercise for at least the next 3 weeks, as this can raise the risk of spleen injury while you have mono. A discharge summary will be sent to [facility] to ensure continuity of care. Please bring this discharge summary with you to your next office appointment so that your provider can review it at that time. Follow-up appointments: Make a follow-up appointment with [facility] in about 1-2 weeks. It is very important that you follow up with them shortly after discharge from the hospital. You also have an appointment with ENT provider Dr. Sarah as follow up in 1 week. Please call [phone] to set up your appointment. * Please also call the ENT office at the above number to schedule an appointment if you have not already heard from the office. Medications: Your medication list has been reviewed and reconciled upon discharge to ensure accuracy and continuity of care. An updated list of all your medications is included with your hospital discharge paperwork. Please review this list closely, and make note of any changes. We sent a new medication called Clindamycin to the [facility] on [address]. You will take 600 mg every 8 hours for 10 days. This will treat the remainder of your tonsil infection. Because a side effect is significant diarrhea, I advise you to eat probiotic yogurt (specifically probiotic) daily for the next 10 days at least. We also sent a new medication called Medrol to the same pharmacy. These are steroids to help reduce the inflammation of your airway as well as general symptoms of fever, aches, etc. The instructions are listed on the bottle, but in summary it is 6 tabs on Day 1 spaced 4 hours apart, 5 tabs on Day 2 spaced 5 hours apart, 4 tabs on Day 3 spaced 6 hours apart, 3 tabs on Day 4 spaced 8 hours apart, 2 tabs on Day 5 spaced 12 hours apart and the last tab on Day 6 for 21 tabs total. Take your medications as instructed; do not skip a dose of your medicines. Make sure all of your doctors know every medicine you are taking (including htal-rmo-qdfnkff medicines, vitamins, and supplements). Call your primary care provider before taking any new medicines (including mauf-hcd-axgsise medicines, vitamins, and supplements), because some of these may interact with your current medications, or may make your symptoms worse. Tell your primary care provider if you cannot afford your medications. CONTACT YOUR PRIMARY CARE PROVIDER if you experience any of the following: Fever Sore throat Abdominal pain Swollen neck Difficulty breathing Vomiting Rash Difficulty following your treatment plan, or difficulty taking medications CALL 911 OR GO TO THE EMERGENCY DEPARTMENT if you experience any of the following: Sudden, severe abdominal pain or nausea/vomiting Severe chest pain, or chest pain that radiates (moves) to your jaw or arm Sudden, severe shortness of breath or difficulty breathing Thank you for allowing us to participate in your care. Pending Studies at Discharge: Yes Studies:: Throat culture Stand-Alone Forms: My [employer], Work/School Release, Smoking Cessation Medications and DC Order Prescriptions: New methylprednisolone [Medrol (Pasquale)] 4 mg tablets,dose pack See Rx Instructions .ROUTE .COMPLEX Qty: 21 RF: 0 clindamycin HCl 300 mg capsule 600 mg PO Q8H 10 Days Qty: 60 RF: 0 Continued ascorbic acid (vitamin C) [Vitamin C] 500 mg Tablet 0 mg PO DAILY RF: 0 amitriptyline 10 mg Tablet 15 mg PO HS RF: 0 vitamin B complex Tablet 1 tab PO DAILY RF: 0 cholecalciferol (vitamin D3) [Vitamin D3] 25 mcg (1,000 unit) Capsule 0 mcg PO DAILY RF: 0 ParaGard T 380A 380 square mm Intrauterine Device 380 mm2 INTRAUTERINE CONTINOUS RF: 0 Discharge Orders: Discharge Order (Routine); Ordered 04/14/21 Ordered By: Lacie Cordero Admission Data Admit Date/Time: 04/13/21 19:36 Attending Provider: Lacie Cordero Admit Provider: Gideon Singer Primary Care Provider: PCP,NO Other Providers: Adria Sarah ; Yaz Deras Other Interventions: Discharge Summary Assessment (RN) Last Done: 04/14/21 11:09 Supervising Physician Co-Signing Physician Notes Patient not being discharged today. Please see progress note from today. Resident Activity Tracking Resident Involvement: Resident Care Provided Care Provided: Adult Hospital Medicine
[2021-04-14] MEDS: CLINDAMYCIN 600 MG in DEXTROSE 5% 50 ML IV SCH ×2 (10:05→16:05)
[2021-04-14] MEDS: LACTOBACILLUS ACIDOPHILUS 1 GM PACK PO SCH ×2 (11:20→15:54)
[2021-04-14] MEDS ORDERED: CLINDAMYCIN HCL 150 MG CAP PO SCH (12:00)
--- NOTE | 2021-04-14 16:21 | Hospitalist Progress Note ---
Date of Service April 14, 2021 Assessment & Plan (1) Tonsillopharyngitis: Plan: 20 yo F with PMH migraines admitted 04/13 for infectious mononucleosis with tonsillar abscess. Infectious mononucleosis with tonsillar abscess -Progressively worsening sore throat, pain with swallowing, reduced oral intake, preceded by URI symptoms -Monospot positive, elevated ESR, CRB, WBC, liver enzymes. CT neck- pharyngeal tonsillitis with airway narrowing, 1.8 cm abscess of R tonsil -Decadron, IVF, Unasyn in ED -Transaminitis likely due to mono, resolving during admission, last AST/ALT of 124/280 -Seen by ENT, 04/14 performed incision/drainage of R peritonsillar abscess. Cont inue IV clindamycin per ENT -Medically stabilized at this time -Pt to be discharged home tomorrow AM with 10 day course of oral clindamycin and medrol dose pack -Advised to avoid contact sports for 3 weeks, eat probiotic yogurt while she completes clindamycin -PCP to recheck liver enzymes after conclusion of treatment course, also f/u with ENT in 1 week Chest pain -Likely due to anxiety/acute stress about leaving hospital while still sick. Normal EKG at time, unlikely to have had any acute ischemic injury -Reassurance provided, pt to stay overnight per her own preference and continued monitoring despite medical stability today (2) Infectious mononucleosis: (3) Peritonsillar abscess: (4) Transaminitis: Admission and Anticipated Discharge Date Admission Date: April 13, 2021 Supervising Physician Co-Signing Physician Notes Patient seen and examined with PGY 1 Dr. Blackwell. Agree with history, exam findings, assessment and plan of care as outlined. In brief, Cally is a 20-year-old female with history of migraines on migraine prophylaxis admitted with bilateral tonsillopharyngitis and right-sided peritonsillar abscess. She received IV Unasyn in the emergency department as well as Decadron. Vital signs and nursing notes reviewed. Well-appearing. +trismus. Bilateral anterior cervical lymphadenopathy, right is more prominent than the left. Labs and imaging reviewed. 1. bilateral tonsillopharyngitis and right-sided peritonsillar abscess. Pharyngitis likely secondary to EBV. However with the peritonsillar abscess, measuring 1.8 cm on the right on CT, started Unasyn. Seen by ENT. Attempted bedside drainage of the abscess but scant return. Switched to IV clindamycin and dexamethasone. 2. Elevated liver chemistries. Likely secondary to mononucleosis. Recheck in 1-2 weeks. Other chronic issues are stable and home medicatons continued. Dispo: pending clinical improvement. Possible discharge home tomorrow. Will need follow up with PCP and ENT in 1 week. Subjective Pt reports feeling slightly better today. Still endorsing mildly painful throat swelling and speaking with somewhat muffled voice but denies dyspnea. Still having little desire to eat or drink. No new complaints. Later in day shortly before planned discharge, pt had acute anxiety about leaving hospital and experienced chest pain. Review of Systems Review of Systems: +Throat swelling, muffled voice Physical Exam Physical Exam: General: tired-appearing female laying in bed, no acute distress, +vocal change HEENT: moist mucous membranes, bilateral cervical lymphadenopathy and bilateral submandibular fullness, white tonsillar exudates noted, pharyngeal erythema with inflamed uvula deviated slightly to left CV: RRR, normal S1 and S2, no murmurs Resp: CTAB, no wheezes, +muffled voice Abdominal: Soft, nontender, nondistended, no hepatosplenomegaly. Skin: warm and dry Results & Data Results & Data ([facility]) Vital Signs (Past 12 Hours) Vital Signs Temp Pulse Pulse Resp BP BP Pulse Ox 04/14/21 15:00 36.4 C L 90 18 112/75 94 04/14/21 11:09 36.3 C L 91 H 16 123/81 96 04/14/21 07:52 89 04/14/21 07:00 36.3 C L 91 H 16 123/81 96 Resident Activity Tracking Resident Involvement: Resident Care Provided Care Provided: Adult [facility] Medicine
--- NOTE | 2021-04-14 16:59 | Electrocardiogram Report ---
Test Reason : Blood Pressure : / mmHG Vent. Rate : 084 BPM Atrial Rate : 084 BPM P-R Int : 146 ms QRS Dur : 090 ms QT Int : 360 ms P-R-T Axes : 051 090 061 degrees QTc Int : 425 ms Normal sinus rhythm Rightward axis Borderline ECG No previous ECGs available Confirmed by Lenin Montaño ([id number]) on 04/14/2021 4:59:09 PM Referred By: REFERRED SELF Confirmed By:Booker Montaño
[2021-04-14] MEDS: AMITRIPTYLINE HCL 10 MG TAB PO SCH (20:38)
--- NOTE | 2021-04-14 22:01 | Billing Data ---
Date of Service April 13, 2021 Coding Level of Care Code 57997 Initial Inpt Care Lvl 2
[2021-04-15] MEDS: MELATONIN 3 MG TAB PO PRN (00:50)
[2021-04-15] MEDS: dexAMETHasone 10 MG in SYRINGE 0 ML IV SCH ×2 (00:51→08:44)
[2021-04-15] MEDS: CLINDAMYCIN 600 MG in DEXTROSE 5% 50 ML IV SCH ×2 (01:18→08:45)
[2021-04-15] MEDS: LACTOBACILLUS ACIDOPHILUS 1 GM PACK PO SCH (08:44)
--- NOTE | 2021-04-15 13:20 | Discharge Summary ---
Date of Service April 15, 2021 Admission HPI Per Admitting Provider Cally is a 20-year-old female with a notable history of migraines who presented to [facility] for evaluation of sore throat and inability to swallow. Patient says that the symptoms began on Monday and gotten progressively worse. Over this time, she does feel that she has been febrile with intermittent chills. She also says that she has been experiencing some mild upper respiratory symptoms. She was seen at urgent care yesterday, where throat culture was obtained, however no results are back at this time. She was empirically prescribed Augmentin and prednisone. She has not taken these yet. Unfortunately, her symptoms worsened overnight and into today. She has been unable to swallow. She does endorse retropharyngeal fullness, but without difficulty breathing. She denies any abdominal pain. Endorses mild intermittent nausea with occasional vomiting. Patient does say that she has had direct salivary contact with 3 partners over the last several months, however denies being sexually active. She denies any current or previous use of intravenous drugs. She says that she does consume alcohol, last use was approximately 4 days ago. At the time, she said she had about 4 drinks. She says that she usually only drinks on weekend. She does endorse using about 1 g of Tylenol per day over these last several days while she has felt ill. In the ED, patient was found to be tachycardic and afebrile. She was found to have significant bilateral pharyngeal tonsillitis. She was noted to have an appreciable leukocytosis to 16 with neutrophilic predominance. Platelets normal. ESR and CRP elevated to 50 and 10.4, respectively. Sodium mildly low at 134, mild transaminitis (ALT 280, AST 124), normal albumin and bilirubin. Her Monospot returned positive. CT of neck did demonstrate severe pharyngotonsillitis with adjacent airway narrowing, phlegmonous change, 1.8 cm peritonsillar abscess on right, and reactive bilateral cervical adenopathy. ENT was consulted in the ED, where case was reviewed. Recommended dexamethasone 10 mg every 8. No acute indication for surgery at this time. Admission Exam Per Admitting Provider General: Tired appearing 20-year-old female who is lying back in her hospital bed, relaxed, upon my arrival. Her voice does sound muffled. She is in no acute distress. HEENT: NCAT. Eyes - Sclera are white, anicteric, and without injection. Mouth - MMM with severe tonsillopharyngitis, touching of the back to mouth. Exudates noted on tonsils. Nose - nasal turbinates are uninflamed and without discharge. Ears - External ears appears healthy b/l with no erythema or rashes; TMs displayed white reflex b/l and are non-bulging, uninflamed, and reveal no signs of fluid accumulation. Neckappreciable soft, nontender mass noted immediately inferior to the angle of the right jaw. Fullness is appreciated within the same area on the left, but smaller. Right-sided anterior cervical lymphadenopathy appreciated. Cardiac: Tachycardic with regular rhythm; S1 and S2 present with no murmurs, rubs, or gallops. Pulmonary: Good respiratory effort with symmetric expansion of the chest. No stridor. Voice muffling noted. No use of accessory muscles. Lungs were clear to auscultation bilaterally with no crackles or wheezes. Abdominal: Abdomen was soft, nondistended, and non-tender to palpation. Mild hepatomegaly appreciated. Extremities: Upper and lower extremities are warm and well perfused. Capillary refill assessed in UE was < 3 sec. Principal Diagnosis Infectious mononucleosis and bacterial tonsillar abscess Discharge Exam General: well-appearing female laying in bed, no acute distress, +vocal change HEENT: moist mucous membranes, bilateral cervical lymphadenopathy R > L and bilateral submandibular fullness, white tonsillar exudates noted, pharyngeal erythema with inflamed uvula deviated slightly to left CV: RRR, normal S1 and S2, no murmurs Resp: CTAB, no wheezes, +muffled voice Abdominal: Soft, nontender, nondistended, no hepatosplenomegaly. Skin: warm and dry Discharge Data Allergies Allergy/AdvReac Type Severity Reaction Status Date / Time diphenhydramine AdvReac Intermediate MAKES HAND Verified 04/13/21 16:42 [From Susan] CLAM UP Consultations 04/13/21 19:36 Consult Otolaryngology (Head and Neck) Routine 04/13/21 19:59 ED Decision to Admit Stat Ordered Studies 04/13/21 16:35 CT soft tissue neck w con Stat Hospital Course (1) Tonsillopharyngitis: 20 yo F with PMH migraines admitted 04/13 for infectious mononucleosis with tonsillar abscess. Discharged 04/15. Infectious mononucleosis with tonsillar abscess -Progressively worsening sore throat, pain with swallowing, reduced oral intake, preceded by URI symptoms -Monospot positive, elevated ESR, CRB, WBC, liver enzymes. CT neck- pharyngeal tonsillitis with airway narrowing, 1.8 cm abscess of R tonsil -Decadron, IVF during stay. Unasyn given in ED but switched to Clindamycin per ENT after 04/14 incision and drainage of R peritonsillar abscess -Transaminitis on admission likely due to mono, resolving during admission, by time of discharge AST/ALT of 71/194 -Medically stabilized at time of discharge -Pt discharged with 10 day course of oral clindamycin and medrol dose pack -Advised to avoid contact sports for 3 weeks, eat probiotic yogurt while she completes clindamycin -PCP to recheck liver enzymes after conclusion of treatment course, also f/u with ENT in 1 week Chest pain -Occurred on 04/14 originally planned discharge date, shortly before time to leave unit -Likely due to anxiety/acute stress about leaving hospital while still sick. Normal EKG at time, unlikely to have had any acute ischemic injury -Reassurance provided (2) Infectious mononucleosis: (3) Peritonsillar abscess: (4) Transaminitis: Total Time Total Time Spent Total Time Spent (In Minutes): 20 Discharge Plan Discharge Items Patient Disposition: Home - Self-Care Reason For Visit: MONO, TONSILLOPHARYNGITIS Discharge Diagnosis: Infectious mononucleosis Activity: Per Instructions section Non-emergency contact: Primary Care Provider Call non-emergency contact if: you have any medication questions, your symptoms worsen, your pain is not controlled, your pain is worsening, your pain is unusual for you and you have a fever Follow-up/Referrals: Adria Sarah MD [Physician] - 04/21/21 8:00 am (In 1 week from today) PCP,NO [Primary Care Provider] - Diet: Regular Addtl Attending Provider Instructions: You were admitted to the hospital for infectious mononucleosis and tonsillar abscess. You were treated with IV fluids, antibiotics, steroids and a procedure to drain your tonsils of the abscess (infected fluid collection). You were diagnosed with mono. This is a viral infection you likely got from saliva of an infected person. We gave you the antibiotics mostly for the tonsillar infection, which was likely caused by some bacteria. The steroids were to reduce the inflammation from the virus and also to help relieve the swelling of your airway. The incision/drainage procedure was intended to clear much of the infection from your tonsils. You will be sent home with some oral antibiotics as well as oral steroids. Your condition improved, but the symptoms will not completely resolve for some time. Take the medications as prescribed and you will notice gradual improvement. Your airway should clear up and you should be able to eat/drink as usual as well as have your normal voice again soon. Please make sure to avoid any contact sports/heavy strenuous exercise for at least the next 3 weeks, as this can raise the risk of spleen injury while you have mono. A discharge summary will be sent to [facility] to ensure continuity of care. Please bring this discharge summary with you to your next office appointment so that your provider can review it at that time. Follow-up appointments: Make a follow-up appointment with [facility] in about 1-2 weeks. It is very important that you follow up with them shortly after discharge from the hospital. You also have an appointment with ENT provider Dr. Sarah as follow up in 1 week. Please call [phone] to set up your appointment. * Please also call the ENT office at the above number to schedule an appointment if you have not already heard from the office. Medications: Your medication list has been reviewed and reconciled upon discharge to ensure accuracy and continuity of care. An updated list of all your medications is included with your hospital discharge paperwork. Please review this list closely, and make note of any changes. We sent a new medication called Clindamycin to the [facility] on [facility]. You will take 600 mg every 8 hours for 10 days. This will treat the remainder of your tonsil infection. Because a side effect is significant diarrhea, I advise you to eat probiotic yogurt (specifically probiotic) daily for the next 10 days at least. We also sent a new medication called Medrol to the same pharmacy. These are steroids to help reduce the inflammation of your airway as well as general symptoms of fever, aches, etc. The instructions are listed on the bottle, but in summary it is 6 tabs on Day 1 spaced 4 hours apart, 5 tabs on Day 2 spaced 5 hours apart, 4 tabs on Day 3 spaced 6 hours apart, 3 tabs on Day 4 spaced 8 hours apart, 2 tabs on Day 5 spaced 12 hours apart and the last tab on Day 6 for 21 tabs total. Take your medications as instructed; do not skip a dose of your medicines. Make sure all of your doctors know every medicine you are taking (including mxga-owm-fzipfwy medicines, vitamins, and supplements). Call your primary care provider before taking any new medicines (including [id number]-[id number] medicines, vitamins, and supplements), because some of these may interact with your current medications, or may make your symptoms worse. Tell your primary care provider if you cannot afford your medications. CONTACT YOUR PRIMARY CARE PROVIDER if you experience any of the following: Fever Sore throat Abdominal pain Swollen neck Difficulty breathing Vomiting Rash Difficulty following your treatment plan, or difficulty taking medications CALL 911 OR GO TO THE EMERGENCY DEPARTMENT if you experience any of the following: Sudden, severe abdominal pain or nausea/vomiting Severe chest pain, or chest pain that radiates (moves) to your jaw or arm Sudden, severe shortness of breath or difficulty breathing Thank you for allowing us to participate in your care. Pending Studies at Discharge: Yes Studies:: Throat culture Stand-Alone Forms: [facility] [employer], Work/School Release, Smoking Cessation Medications and DC Order Prescriptions: New methylprednisolone [Medrol (Pasquale)] 4 mg tablets,dose pack See Rx Instructions .ROUTE .COMPLEX Qty: 21 RF: 0 clindamycin HCl 300 mg capsule 600 mg PO Q8H 10 Days Qty: 60 RF: 0 Continued ascorbic acid (vitamin C) [Vitamin C] 500 mg Tablet 0 mg PO DAILY RF: 0 amitriptyline 10 mg Tablet 15 mg PO HS RF: 0 vitamin B complex Tablet 1 tab PO DAILY RF: 0 cholecalciferol (vitamin D3) [Vitamin D3] 25 mcg (1,000 unit) Capsule 0 mcg PO DAILY RF: 0 ParaGard T 380A 380 square mm Intrauterine Device 380 mm2 INTRAUTERINE CONTINOUS RF: 0 Discharge Orders: Discharge Order (Routine); Ordered 04/15/21 Ordered By: Lacie Ellis/Other Patient Handouts: Peritonsillar Abscess, Tonsillitis in Adults, ED Mononucleosis, ED Peritonsillar Abscess Admission Data Admit Date/Time: 04/13/21 19:36 Attending Provider: Lacie Cordero Admit Provider: Gideon Singer Primary Care Provider: PCP,NO Other Providers: Adria Sarah ; Yaz Deras Other Interventions: Discharge Summary Assessment (RN) Last Done: 04/15/21 11:18 Supervising Physician Co-Signing Physician Notes Patient seen and examined independently of PGY 1 Dr. Blackwell. Agree with history, exam findings, assessment and plan of care as outlined. In brief, Cally is a 20-year-old female with history of migraines on migraine prophylaxis admitted with bilateral tonsillopharyngitis and right-sided peritonsillar abscess. She received IV Unasyn in the emergency department as well as Decadron. Vital signs and nursing notes reviewed. Well-appearing. +trismus. Bilateral anterior cervical lymphadenopathy, right is more prominent than the left. Labs and imaging reviewed. 1. bilateral tonsillopharyngitis and right-sided peritonsillar abscess. Pharyngitis likely secondary to EBV as well as group C strep that grew out on the throat culture. Peritonsillar abscess, measuring 1.8 cm on the right on CT, started Unasyn then switched to IV clindamycin. Seen by ENT. Attempted bedside drainage of the abscess but scant return yesterday. Continue dexamethasone Other chronic issues are stable and home medications continued. Dispo: Discharge home today. I personally spent 20 minutes discharge planning for this patient. . Will need follow up with PCP and ENT in 1 week. Resident Activity Tracking Resident Involvement: Resident Care Provided Care Provided: Adult Hospital Medicine
[2021-04-16 15:47] LABS: Creatinine Clr Calc Pharmacy 133.6 ml/min; Est GFR (Non-African American) 126.8 ml/min
[2021-04-16 15:48] LABS: Hematocrit (blood only) 33.1 % (37-47); Hemoglobin 11.4 g/dL (12.0-16.0); Red Blood Count 3.86 M/uL (4.2-5.4)
== END 2021-04-15 11:46 | disposition home or self-care (01) | DRG 866 ==
LOC: EDSEX 13:50 → ED 13:50 → SUATTDRO 19:36 → 2N 19:36